=== PATIENT | female | born 1945 | race Caucasian/White ===

== ENCOUNTER 2021-06-28 17:53 | Inpatient (IN) | payer MEDICAID ==
[~2021-06-28] VITALS: Ht 157.5 cm; Wt 70.3 kg
[2021-06-28] MEDS ORDERED: ONDANSETRON HCL 4MG/2ML INJ IV ONE (21:00)
[2021-06-28] MEDS ORDERED: MORPHINE SULFATE 4 MG/ML CPJ (NOT FOR IM USE) IV NR (21:16)
[2021-06-28 21:26] LABS: BASOPHILS % 0.6 % (0.0-2.0); EOSINOPHILS % 0.7 % (0.0-5.0); HEMATOCRIT. 34.3 % (36.0-48.0); HEMOGLOBIN. 11.5 g/dL (12.0-16.0); LYMPHOCYTES % 13.8 % (20.0-50.0); MEAN CORPUSCULAR HEMOGLOBIN 32.1 pg (28.0-32.0); MEAN CORPUSCULAR VOLUME 96.1 fL (81.0-99.0); MEAN PLATELET VOLUME 10.6 fl (7.4-10.4); MONOCYTES % 9.9 % (2.0-8.0); PLATELET 92 x1000/uL (130-400); RED BLOOD CELL COUNT 3.57 mill/uL (4.2-5.4); RED CELL DISTRIBUTION WIDTH 13.9 % (11.6-14.6)
[2021-06-28 21:33] LABS: CHLORIDE 103 mEq/L (98-107)
[2021-06-29] MEDS ORDERED: MAGNESIUM/ALUMINUM HYDROXIDE/SIMETHICONE 30ML UDC PO PRN
[2021-06-29] MEDS ORDERED: ACETAMINOPHEN 325MG TABLET PO PRN ×2
[2021-06-29] MEDS ORDERED: DIPHENHYDRAMINE 50MG/ML VIAL IV PRN
[2021-06-29] MEDS ORDERED: MORPHINE SULFATE 4 MG/ML CPJ (NOT FOR IM USE) IV PRN
[2021-06-29] MEDS ORDERED: HYDRALAZINE 20MG/ML VIAL IV PRN
[2021-06-29] MEDS ORDERED: GUAIFENESIN 200MG/10ML SUGAR FREE UDC PO PRN
[2021-06-29] MEDS ORDERED: CLONIDINE 0.1MG TABLET PO PRN
[2021-06-29] MEDS ORDERED: ZOLPIDEM TARTRATE 5MG TABLET PO PRN
[2021-06-29] MEDS ORDERED: ONDANSETRON HCL 4MG/2ML INJ IV PRN
[2021-06-29] MEDS ORDERED: NALOXONE HCL 0.4MG/ML VIAL IV PRN (00:45)
[2021-06-29] MEDS ORDERED: DEXTROSE 50% WATER 50ML SYRINGE IV PRN ×2 (03:30)
[2021-06-29] MEDS ORDERED: IOHEXOL-350 100 ML BOTTLE ONE (04:04)
[2021-06-29 05:27] LABS: BASOPHILS % 0.3 % (0.0-2.0); EOSINOPHILS % 0.3 % (0.0-5.0); HEMATOCRIT. 31.4 % (36.0-48.0); HEMOGLOBIN. 10.5 g/dL (12.0-16.0); LYMPHOCYTES % 9.9 % (20.0-50.0); MEAN CORPUSCULAR VOLUME 95.8 fL (81.0-99.0); MEAN PLATELET VOLUME 10.9 fl (7.4-10.4); MONOCYTES % 11.2 % (2.0-8.0); NEUTROPHILS % 78.3 % (40.0-76.0); PLATELET 83 x1000/uL (130-400); RED BLOOD CELL COUNT 3.28 mill/uL (4.2-5.4); RED CELL DISTRIBUTION WIDTH 14.4 % (11.6-14.6)
[2021-06-29 06:00] VITALS: BP 153/63
[2021-06-29] MEDS ORDERED: BLOOD SUGAR DIAGNOSTIC STRIP TEST SCH (06:30)
[2021-06-29] MEDS ORDERED: INSULIN LISPRO 100 UNITS/ML SUBCUT SCH (07:00)
[2021-06-29] MEDS: BLOOD SUGAR DIAGNOSTIC STRIP TEST SCH ×4 (07:12→21:44)
[2021-06-29] MEDS: INSULIN LISPRO 100 UNITS/ML SUBCUT SCH ×4 (07:12→21:00)
[2021-06-29] MEDS: SODIUM CHLORIDE 0.9% INJ 3ML FLUSH IVF SCH ×3 (07:41→21:43)
[2021-06-29 08:00] VITALS: BP 157/56
[2021-06-29] MEDS: FAMOTIDINE 20MG TABLET PO SCH (09:17)
[2021-06-29] MEDS ORDERED: BISA-81 PO (10:58)
[2021-06-29] MEDS ORDERED: LOSA50TA41 MT (10:58)
[2021-06-29] MEDS ORDERED: GABA-532 MT (10:58)
[2021-06-29] MEDS ORDERED: FOLI1TAB87 MT (10:58)
[2021-06-29] MEDS ORDERED: ACET-2708 MT (10:58)
[2021-06-29] MEDS ORDERED: AMLO5TAB88 MT (10:58)
[2021-06-29] MEDS ORDERED: OMEP20TA2 MT (10:58)
[2021-06-29] MEDS ORDERED: FERR210T MT (10:58)
[2021-06-29 12:00] VITALS: BP 110/59
[2021-06-29] MEDS: MORPHINE SULFATE 2 MG/ML CPJ (NOT FOR IM USE) IV PRN (13:00)
[2021-06-29] MEDS ORDERED: IBUPROFEN 400MG TABLET PO PRN (15:45)
[2021-06-29 16:00] VITALS: BP 139/67
[2021-06-29] MEDS: ASPIRIN 325MG EC TABLET PO SCH (17:08)
[2021-06-29 20:00] VITALS: BP 133/49
[2021-06-30] VITALS: BP 113/53
[2021-06-30 04:00] VITALS: BP 134/55
[2021-06-30] MEDS: INSULIN LISPRO 100 UNITS/ML SUBCUT SCH ×3 (05:33→17:17)
[2021-06-30] MEDS: BLOOD SUGAR DIAGNOSTIC STRIP TEST SCH ×3 (05:33→17:12)
[2021-06-30] MEDS: SODIUM CHLORIDE 0.9% INJ 3ML FLUSH IVF SCH ×2 (05:33→13:02)
[2021-06-30 08:00] VITALS: BP 140/56
[2021-06-30] MEDS: ASPIRIN 325MG EC TABLET PO SCH ×3 (08:07→17:12)
[2021-06-30] MEDS: FAMOTIDINE 20MG TABLET PO SCH (08:07)
[2021-06-30 12:00] VITALS: BP 134/57
[2021-06-30] MEDS: MORPHINE SULFATE 2 MG/ML CPJ (NOT FOR IM USE) IV PRN (12:26)
[2021-06-30 16:00] VITALS: BP 136/58
[2021-06-30 16:36] VITALS: BP 136/58
[2021-06-30 20:02] LABS: HEPATITIS B SURFACE ANTIGEN NEGATIVE
== END 2021-06-30 18:00 | disposition home or self-care (01) | DRG 207 ==
LOC: ER 17:53 → MICUSO 22:02 → 8WST 06-29 04:18
PROVIDERS: ADMIT Internal Medicine; ATTEND Internal Medicine
PROC: 5A1D70Z Performance of Urinary Filtration, Intermittent, Less than 6 Hours Per Day (ICD-10-PCS; principal; 2021-06-29)
PROC: 5A1D70Z Performance of Urinary Filtration, Intermittent, Less than 6 Hours Per Day (ICD-10-PCS; 2021-06-30)
DX: I31.9 Disease of pericardium, unspecified (principal); J96.01 Acute respiratory failure with hypoxia; I50.43 Acute on chronic combined systolic (congestive) and diastolic (congestive) heart failure; D69.6 Thrombocytopenia, unspecified; I27.20 Pulmonary hypertension, unspecified; N18.6 End stage renal disease; E87.1 Hypo-osmolality and hyponatremia; E11.22 Type 2 diabetes mellitus with diabetic chronic kidney disease; I13.2 Hypertensive heart and chronic kidney disease with heart failure and with stage 5 chronic kidney disease, or end stage renal disease; I31.3 Pericardial effusion (noninflammatory); K76.89 Other specified diseases of liver; E78.5 Hyperlipidemia, unspecified; K80.20 Calculus of gallbladder without cholecystitis without obstruction; N20.0 Calculus of kidney; E87.5 Hyperkalemia; Z20.822 Contact with and (suspected) exposure to COVID-19; D64.9 Anemia, unspecified; Z79.1 Long term (current) use of non-steroidal anti-inflammatories (NSAID); Z99.2 Dependence on renal dialysis; Z90.49 Acquired absence of other specified parts of digestive tract; Z79.899 Other long term (current) drug therapy
CPT/HCPCS: 36415; 71045; 71275; 74174; 76700; 80048; 80053; 82962; 83036; 83880; 84132; 84484; 85025; 85651; 86140; 86705; 86709; 86803; 87340; 87426; 93005; 93306; 99285; J1815; J2270; J2405; Q9967